=== PATIENT | female | born 1940 | race Caucasian/White ===

== ENCOUNTER 2018-08-07 14:44 | Emergency (ER) | payer MEDICARE, BC ==
[2018-08-07 15:00] VITALS: BP 142/55
--- NOTE | 2018-08-07 15:18 | UC ---
Head Injury HPI - HPI Summary HPI Summary: 78-year-old woman who comes in with a chief complaint today of a fall where she injured her head and her left forearm. She got her treadmill and she lost control and fell on the treadmill. He struck her left forehead and her left forearm. She had a skin break injury of the left forearm which has been cleaned and dressed already at her residence at [place]. She also struck her left forehead. Denies any loss of consciousness denies any vision change or difficulty with speech or weakness or numbness. She says the head injury was quite mild. She is on an aspirin a day but not on any other blood thinners. - History Of Current Complaint Chief Complaint: UCHeadInjury Stated Complaint: HEAD,ARM INJURY Time Seen by Provider: 08/07/18 15:00 Pain Intensity: 1 - Allergies/Home Medications Allergies/Adverse Reactions: Allergies Allergy/AdvReac Type Severity Reaction Status Date / Time amoxicillin Allergy Diarrhea Verified 08/07/18 15:02 ciprofloxacin [From Cipro] Allergy Hives Verified 08/07/18 15:02 IV CONTRAST Allergy Rash Uncoded 08/07/18 15:02 Home Medications: Home Medications Acetaminophen [Acetaminophen ER] 650 mg PO Q6HR PRN 08/07/18 [History Confirmed 08/07/18] Amitriptyline TAB* [Elavil TAB*] 150 mg PO BEDTIME 08/07/18 [History Confirmed 08/07/18] Nitroglycerin 0.4 MG/HR PATCH* [Nitroglycerin 10 MG PATCH*] 1 patch TRANSDERM DAILY 08/07/18 [History Confirmed 08/07/18] PMH/Surg Hx/FS Hx/Imm Hx Cardiovascular History: Hypertension Neurological History: CVA Other History Of: Anticoagulant Therapy - Aspirin - Surgical History Surgical History: Yes Surgery Procedure, Year, and Place: 1947 TONSILECTOMY [facility] [place]. 1979 TUBAL LIGATION. 1982 CERVICAL CONE BIOPSY [place]. 1982 CERVIX REMOVED (PRE- CANCEROUS) [place]. 1983 TOTAL HYSTERECTOMY [facility] [place]. 1985 LEFT FOOT BUNIONECTOMY [facility] [place]. 1987 FRACTURED RT FEMUR (WITH RODDING) [facility] [place]. 1990 GALLBLADDER [facility] [place]. 2004 COLONOSCOPY (NO POLYPS) [facility] [place]. 08/2012 LEFT ARM FISTUAL PLACEMENT (DIALYSIS) [facility] [place]. 2013 BILATERAL CATARACTS [facility] [place] - Family History Known Family History: Positive: Cardiac Disease Family History: reviewed and noncontributory - Social History Alcohol Use: Occasionally Substance Use Type: None Smoking Status (MU): Never Smoked Tobacco Type: Cigarettes - Immunization History Most Recent Influenza Vaccination: 2013 Most Recent Tetanus Shot: 2018 Most Recent Pneumonia Vaccination: 2011 Review of Systems All Other Systems Reviewed And Are Negative: Yes Constitutional: Positive: Negative Skin: Positive: Other - see hpi Eyes: Positive: Negative ENT: Positive: Negative Respiratory: Positive: Negative Cardiovascular: Positive: Negative Gastrointestinal: Positive: Negative Motor: Positive: Negative Neurovascular: Positive: Negative Musculoskeletal: Positive: Negative Neurological: Positive: Negative. Negative: Headache Psychological: Positive: Negative Is Patient Immunocompromised?: No Physical Exam Triage Information Reviewed: Yes Appearance: Well-Appearing, No Pain Distress, Well-Nourished Vital Signs: Initial Vital Signs Temp 97.3 F 08/07/18 14:51 Pulse 69 08/07/18 14:51 Resp 16 08/07/18 14:51 BP 142/55 08/07/18 14:51 Pulse Ox 97 08/07/18 14:51 Vital Signs Reviewed: Yes Eye Exam: Normal Eyes: Positive: Conjunctiva Clear, Other: - perrla/eomi ENT: Positive: TMs normal - No hemo-tympano-. Negative: Nasal drainage Neck exam: Normal Neck: Positive: Supple, Nontender Respiratory: Positive: Lungs clear, Normal breath sounds, No respiratory distress Cardiovascular Exam: Normal Cardiovascular: Positive: RRR Abdomen Description: Positive: Nontender, Soft. Negative: CVA Tenderness (R), CVA Tenderness (L) Bowel Sounds: Positive: Present Musculoskeletal: Positive: Other: - Left forearm is in a dressing her arms to include shoulders elbows fingers and wrists are all full range of motion with full strength. Neurological Exam: Normal Neurological: Positive: Alert, Muscle Tone Normal Psychological Exam: Normal Psychological: Positive: Age Appropriate Behavior Skin: Positive: Other - Patient has a small area of a bruise just above her left eye. Left forearm is already dressed. I discussed a re-evaluation of this forearm injury and she declined it stating that it had been taking care of already at her residence. Head Injury Course/Dx - Course Course Of Treatment: Patient is on aspirin but not on any other blood thinners. She denies any headache now there is no evidence of any abnormal neurologic findings. Denies any loss of consciousness. We discussed head CT and x-rays of the forearm. She declined those at this time. We discussed that if she started to feel worse or had any other concerns she should get reevaluated right away she agreed. - Differential Dx/Diagnosis Provider Diagnoses: head injury. left forearm injury Discharge - Sign-Out/Discharge Documenting (check all that apply): Patient Departure All imaging exams completed and their final reports reviewed: No Studies - Discharge Plan Condition: Stable Disposition: HOME Patient Education Materials: Head Injury (ED), Laceration Without Closure (ED) Referrals: Ximena Swanson MD [Primary Care Provider] - Additional Instructions: FOLLOW UP WITH YOUR DOCTOR IF NOT COMPLETELY IMPROVED. GET RECHECKED FOR ANY WORSENING OF YOUR CONDITION OR QUESTIONS OR CONCERNS. - Billing Disposition and Condition Condition: STABLE Disposition: Home
== END 2018-08-07 15:30 | disposition home or self-care (01) ==
LOC: UCEAST 14:44
DX: S09.90XA Unspecified injury of head, initial encounter (principal); S59.912A Unspecified injury of left forearm, initial encounter; I10 Essential (primary) hypertension; Z88.0 Allergy status to penicillin; Z91.041 Radiographic dye allergy status; Z88.1 Allergy status to other antibiotic agents; Z79.82 Long term (current) use of aspirin; Z86.73 Personal history of transient ischemic attack (TIA), and cerebral infarction without residual deficits; W19.XXXA Unspecified fall, initial encounter; Y92.9 Unspecified place or not applicable
CPT/HCPCS: 99212; G0463